=== PATIENT | male | born 1950 | race Caucasian/White ===

== ENCOUNTER 2021-02-11 10:14 | Emergency (ER) | payer OTHER ==
[~2021-02-11] VITALS: Ht 185.4 cm; Wt 88.9 kg
[2021-02-11 10:15] VITALS: BP 145/99
[2021-02-11] MEDS ORDERED: GABA300C PO (11:38)
[2021-02-11 11:42] VITALS: BP 148/79
== END 2021-02-11 11:43 | disposition home or self-care (01) ==
LOC: EDH 10:14
DX: M79.602 Pain in left arm (principal); M79.2 Neuralgia and neuritis, unspecified; F40.240 Claustrophobia; F41.9 Anxiety disorder, unspecified; J44.9 Chronic obstructive pulmonary disease, unspecified; I10 Essential (primary) hypertension; E11.9 Type 2 diabetes mellitus without complications; Z88.5 Allergy status to narcotic agent; Z79.899 Other long term (current) drug therapy

== ENCOUNTER 2021-07-12 05:16 | Emergency (ER) | payer OTHER ==
[~2021-07-12] VITALS: Ht 185.4 cm; Wt 85.3 kg
[~2021-07-12 05:16] MED LIST: GABA300C PO
[2021-07-12] MEDS ORDERED: COLCHICINE 0.6 MG TABLET ONE (06:03)
[2021-07-12] MEDS ORDERED: COLC0.6C3 PO (06:18)
[2021-07-12 06:37] VITALS: BP 123/64
== END 2021-07-12 06:38 | disposition home or self-care (01) ==
LOC: EDH 05:16
DX: R22.33 Localized swelling, mass and lump, upper limb, bilateral (principal); I10 Essential (primary) hypertension; J44.9 Chronic obstructive pulmonary disease, unspecified; Z79.899 Other long term (current) drug therapy; Z88.5 Allergy status to narcotic agent

== ENCOUNTER 2021-11-24 08:57 | Inpatient (IN) | payer OTHER ==
[~2021-11-24] VITALS: Ht 185.4 cm; Wt 73.1 kg
[~2021-11-24 08:57] MED LIST changes: +COLC0.6C3 PO
[2021-11-24 09:20] LABS: BASOPHILS % (AUTO) 0.2 % (0.0-5.0); HEMATOCRIT 45.7 % (42-54); LYMPHOCYTES % (AUTO) 8.3 % (21.0-51.0); MEAN CORPUSCULAR HGB CONC 32.8 g/dL (32.0-36.0); MEAN CORPUSCULAR VOLUME 85.4 fL (79-99); MONOCYTES % (AUTO) 6.8 % (3.0-13.0); NEUTROPHILS % (AUTO) 84.6 % (40.0-77.0); PLATELET COUNT (AUTO) 148 K/uL (130-400); RED BLOOD CELL COUNT(AUTO) 5.35 MIL/uL (4.50-6.20); RED CELL DISTRIBUTION WIDTH 13.1 % (11.0-15.5); WHITE BLOOD COUNT (AUTO) 8.9 K/uL (4.8-10.8)
[2021-11-24] MEDS ORDERED: SOLU-MEDROL 125MG VIAL IVP SCH (09:30)
[2021-11-24] MEDS ORDERED: IPRATROPIUM/ALBUTEROL SULFATE 3 ML SOLUTION IH SCH (09:30)
[2021-11-24 09:38] LABS: POTASSIUM 4.8 mmol/L (3.5-5.1)
[2021-11-24 09:42] LABS: BILIRUBIN,TOTAL 0.6 mg/dL (0.2-1.0); TOTAL PROTEIN, SERUM 7.2 g/dL (6.0-8.3)
[2021-11-24] MEDS ORDERED: ALBUTEROL 0.083% 2.5 MG/3 ML INH IH SCH (09:46)
[2021-11-24] MEDS ORDERED: ALBUTEROL 0.083% 2.5 MG/3 ML INH IH ONE (09:51)
[2021-11-24] MEDS ORDERED: CEFTRIAXONE 2GM VIAL IVP SCH (14:00)
[2021-11-24] MEDS ORDERED: SULF500T8 PO (14:16)
[2021-11-24] MEDS ORDERED: [UNRECOGNIZED DRUG - CODE] PO (14:16)
[2021-11-24] MEDS ORDERED: TRAM50TA4 PO (14:16)
[2021-11-24] MEDS ORDERED: PRED10TA3 PO (14:16)
[2021-11-24] MEDS ORDERED: GABA600T10 PO (14:16)
[2021-11-24 15:00] VITALS: BP 132/62
[2021-11-24 15:24] LABS: HEMOGLOBIN A1C 6.7 % (4.0-6.0)
[2021-11-24 16:06] LABS: ABG BASE EXCESS 0.9 mmol/L (-2.0-3.0); ABG HCO3 25.2 mmol/L (21.0-28.0); ABG OXYGEN SATURATION 95.8 % (95.0-99.0); ABG PCO2 39 mmHg (35-48)
[2021-11-24] MEDS: BUDESONIDE 0.25 MG/2 ML INH IH SCH (18:27)
[2021-11-24] MEDS: IPRATROPIUM/ALBUTEROL SULFATE 3 ML SOLUTION IH SCH ×2 (18:27→23:19)
[2021-11-24 20:55] VITALS: BP 130/58
[2021-11-24] MEDS ORDERED: SOLU-MEDROL 40MG VIAL IVP SCH (21:00)
[2021-11-24] MEDS ORDERED: DOXYCYCLINE HYCLATE 100 MG TABLET PO SCH (21:00)
[2021-11-24] MEDS: OSELTAMIVIR PHOSPHATE 75 MG CAP PO SCH (22:04)
[2021-11-24] MEDS: CEFTRIAXONE 1G VIAL IVP SCH (22:04)
[2021-11-24] MEDS: SOLU-MEDROL 40MG VIAL IVP SCH (22:04)
[2021-11-24] MEDS: FAMOTIDINE 20MG TAB PO SCH (22:04)
[2021-11-24] MEDS: INSULIN LISPRO 100 UNIT/ML 3ML SQ SCH (22:13)
[2021-11-25] MEDS ORDERED: INSULIN LISPRO 100 UNIT/ML 3ML SQ SCH
[2021-11-25 03:37] VITALS: BP 121/54
[2021-11-25] MEDS: IPRATROPIUM/ALBUTEROL SULFATE 3 ML SOLUTION IH SCH ×2 (06:00→11:28)
[2021-11-25] MEDS: BUDESONIDE 0.25 MG/2 ML INH IH SCH (06:00)
[2021-11-25 06:07] LABS: HEMATOCRIT 42.2 % (42-54); MEAN CORPUSCULAR HGB CONC 34.4 g/dL (32.0-36.0); MEAN CORPUSCULAR VOLUME 84.4 fL (79-99)
[2021-11-25] MEDS: SOLU-MEDROL 40MG VIAL IVP SCH (06:10)
[2021-11-25] MEDS: INSULIN LISPRO 100 UNIT/ML 3ML SQ SCH ×2 (06:11→11:55)
[2021-11-25 06:25] LABS: CREATININE 0.9 mg/dL (0.5-1.5); MAGNESIUM 1.9 mg/dL (1.80-2.40); POTASSIUM 4.4 mmol/L (3.5-5.1)
[2021-11-25 07:46] VITALS: BP 130/61
[2021-11-25 08:00] VITALS: BP 130/61
[2021-11-25] MEDS ORDERED: PRED10TA3 PO (08:53)
[2021-11-25] MEDS ORDERED: AZIT500T4 PO (08:53)
[2021-11-25] MEDS ORDERED: ENOXAPARIN SODIUM 40 MG/0.4 ML SYRINGE SQ SCH (09:00)
[2021-11-25] MEDS: OSELTAMIVIR PHOSPHATE 75 MG CAP PO SCH (09:54)
[2021-11-25] MEDS: CEFTRIAXONE 1G VIAL IVP SCH (09:54)
[2021-11-25] MEDS: FAMOTIDINE 20MG TAB PO SCH (09:54)
[2021-11-25 11:37] VITALS: BP 132/71
[2021-11-25] MEDS ORDERED: OSEL75 PO (13:23)
== END 2021-11-25 14:47 | disposition home or self-care (01) | DRG 193 ==
LOC: EDH 08:57 → EDHIP 13:38 → 4BH 15:45
PROVIDERS: ADMIT Internal Medicine; ATTEND Internal Medicine
DX: J10.08 Influenza due to other identified influenza virus with other specified pneumonia (principal); J96.01 Acute respiratory failure with hypoxia; J12.9 Viral pneumonia, unspecified; J44.1 Chronic obstructive pulmonary disease with (acute) exacerbation; J44.0 Chronic obstructive pulmonary disease with (acute) lower respiratory infection; Z20.822 Contact with and (suspected) exposure to COVID-19; G89.29 Other chronic pain; M54.9 Dorsalgia, unspecified; G62.9 Polyneuropathy, unspecified; I25.10 Atherosclerotic heart disease of native coronary artery without angina pectoris; F17.210 Nicotine dependence, cigarettes, uncomplicated; E11.65 Type 2 diabetes mellitus with hyperglycemia; F43.10 Post-traumatic stress disorder, unspecified; M19.90 Unspecified osteoarthritis, unspecified site; I10 Essential (primary) hypertension; R79.89 Other specified abnormal findings of blood chemistry
CPT/HCPCS: 36415; 36600; 71045; 80048; 80053; 82550; 82803; 82948; 83036; 83735; 83880; 84100; 84484; 85025; 85027; 85378; 87071; 87205; 87635; 87804; 93005; 93970; 94640; 94664; 94760; C9803; G0378; J0696; J1650; J2920; J2930